=== PATIENT | female | born 1955 | race Caucasian/White ===

== ENCOUNTER → 2023-07-01 10:33 | Outpatient (CLI) | payer OTHER ==
[2023-07-01 11:29] LABS: HEMATOCRIT 38.5 % (36.0-45.00); HEMOGLOBIN 12.7 g/dL (12.0-15.00); MEAN CELL VOLUME 84.3 fL (80.00-100.00); MEAN CORPUSCULAR HEMOGLOBIN 27.8 pg (27.00-32.0); RED BLOOD COUNT 4.56 M/uL (4.00-6.00); RED CELL DISTRIBUTION WIDTH 15.7 % (11.5-14.5)
[2023-07-01 11:33] LABS: PLATELET COUNT 85 K/uL (150-450)
[2023-07-01 11:46] LABS: INR 0.97; PARTIAL THROMBOPLASTIN TIME 29.1 SECONDS (22.0-34.0); PROTHROMBIN TIME 10.2 SECONDS (9.0-11.5)
[2023-07-01 11:57] LABS: ALBUMIN 3.2 gm/dL (3.4-5.0); BILIRUBIN TOTAL 0.32 mg/dL (0.3-1.2); CALCIUM 9.7 mg/dL (8.5-10.1); CREATININE SERUM 0.56 mg/dL (0.55-1.02); FERRITIN 54.1 NG/ML (8-252); GFR 107.65; GLOBULINA 4.1 G/DL (2.4-3.5); POTASSIUM 4.33 mEq/L (3.5-5.1); T4 FREE 0.86 NG/ML (0.76-1.46); TOTAL PROTEIN 7.3 gm/dL (6.4-8.2); TSH 2.53 uIU/mL (0.358-3.74)
[2023-07-01 12:35] LABS: FOLIC ACID > 20.00 ng/ml (4.78-20)
[2023-07-01 14:22] LABS: MANUAL PLATELET COUNT 168
[2023-07-01 14:23] LABS: PLATELET ESTIMATE NORMAL (NORMAL)
[2023-07-03 10:08] LABS: ANTI THYROID PEROXIDASE 11 IU/mL (0-34)
[2023-07-03 12:12] LABS: TRANSFERIN 269 mg/dL (192-364)
== END | disposition home or self-care (01) ==
LOC: LAB 10:33
PROVIDERS: ATTEND Internal Medicine Hematology & Oncology
DX: D50.8 Other iron deficiency anemias (principal); R79.9 Abnormal finding of blood chemistry, unspecified; I10 Essential (primary) hypertension; R74.02 Elevation of levels of lactic acid dehydrogenase [LDH]; K76.89 Other specified diseases of liver; D51.1 Vitamin B12 deficiency anemia due to selective vitamin B12 malabsorption with proteinuria; D51.0 Vitamin B12 deficiency anemia due to intrinsic factor deficiency; E03.8 Other specified hypothyroidism; E06.3 Autoimmune thyroiditis; D68.8 Other specified coagulation defects; D69.1 Qualitative platelet defects; D69.6 Thrombocytopenia, unspecified; E11.9 Type 2 diabetes mellitus without complications; E78.2 Mixed hyperlipidemia; L52 Erythema nodosum

== ENCOUNTER → 2024-06-15 09:55 | Outpatient (CLI) | payer OTHER ==
[2024-06-15 11:39] LABS: HEMATOCRIT 35.6 % (36.0-45.00); HEMOGLOBIN 11.9 g/dL (12.0-15.00); MEAN CELL VOLUME 86.3 fL (80.00-100.00); MEAN CORPUSCULAR HEMOGLOBIN 28.8 pg (27.00-32.0); MEAN CORPUSCULAR HGB CONC 33.4 g/dl (32.0-36.0); RED BLOOD COUNT 4.13 M/uL (4.00-6.00); RED CELL DISTRIBUTION WIDTH 15.7 % (11.5-14.5)
[2024-06-15 11:53] LABS: PLATELET COUNT 78 K/uL (150-450)
[2024-06-15 12:00] LABS: PARTIAL THROMBOPLASTIN TIME 27.1 SECONDS (22.0-34.0); PROTHROMBIN TIME 10.9 SECONDS (9.0-11.5)
[2024-06-15 12:21] LABS: ALBUMIN 3.2 gm/dL (3.4-5.0); BILIRUBIN TOTAL 0.35 mg/dL (0.3-1.2); CALCIUM 9.2 mg/dL (8.5-10.1); CREATININE SERUM 0.59 mg/dL (0.55-1.02); FERRITIN 89.1 NG/ML (8-252); GFR 101.06; GLOBULINA 3.8 G/DL (2.4-3.5); POTASSIUM 4.35 mEq/L (3.5-5.1)
[2024-06-15 13:09] LABS: FOLIC ACID > 20.00 ng/ml (4.78-20)
[2024-06-16 06:27] LABS: MANUAL PLATELET COUNT 144
[2024-06-16 06:28] LABS: PLATELET ESTIMATE DECREASED (NORMAL)
== END | disposition home or self-care (01) ==
LOC: LAB 09:55
PROVIDERS: ATTEND Internal Medicine Hematology & Oncology
DX: D69.6 Thrombocytopenia, unspecified (principal); I10 Essential (primary) hypertension; E11.9 Type 2 diabetes mellitus without complications; E78.2 Mixed hyperlipidemia; L52 Erythema nodosum; D50.8 Other iron deficiency anemias; R79.9 Abnormal finding of blood chemistry, unspecified; R74.02 Elevation of levels of lactic acid dehydrogenase [LDH]; K76.89 Other specified diseases of liver; D68.8 Other specified coagulation defects; D69.1 Qualitative platelet defects